=== PATIENT | female | born 1995 | race Caucasian/White ===

== ENCOUNTER 2018-06-14 16:20 | Emergency (ER) | payer OTHER ==
[2018-06-14 16:37] VITALS: BP 106/68; PULSE 72; RESP 16; O2SAT 98; BMI 23.0
[2018-06-14 16:41] VITALS: TEMP 99
--- NOTE | 2018-06-14 17:07 | C.PDOC ---
History Of Present Illness 22 year old female presents to ED with complaint of digitally and positionally reproducible pain to the left lower para-sternal border for 3 weeks. Patient states that she slipped and fell 3 weeks ago. She states that the pain is worse with deep breathes and shoulder rotation. Patient denies fever, chills, numbness, and weakness. Time Seen by Provider: 06/14/18 16:54 Chief Complaint (Nursing): Chest Pain History Per: Patient History/Exam Limitations: no limitations Onset/Duration Of Symptoms: Other (3 weeks) Current Symptoms Are (Timing): Still Present Quality: "Pain" Associated Symptoms: Dyspnea. denies: Diaphoresis Exacerbating Factors: Deep Breathing, Other (shoulder rotation) Alleviating Factors: None Past Medical History Reviewed: Historical Data, Nursing Documentation, Vital Signs Vital Signs: Last Vital Signs Temp 99 F 06/14/18 16:39 Pulse 72 06/14/18 16:39 Resp 16 06/14/18 16:39 BP 106/68 06/14/18 16:39 Pulse Ox 98 06/14/18 16:39 - Medical History PMH: No Chronic Diseases Surgical History: No Surg Hx Family History: States: Unknown Family Hx - Social History Hx Alcohol Use: No Hx Substance Use: No - Immunization History Hx Tetanus Toxoid Vaccination: No Hx Influenza Vaccination: No Hx Pneumococcal Vaccination: No Review Of Systems Constitutional: Negative for: Fever, Chills, Weakness Cardiovascular: Positive for: Other (pain to the left lower para-sternal border) Respiratory: Negative for: Cough, Shortness of Breath Neurological: Negative for: Weakness, Numbness, Dizziness Physical Exam - Physical Exam Appears: Well, Non-toxic, No Acute Distress Skin: Normal Color, Warm, Dry Head: Atraumatic, Normacephalic Neck: Normal ROM, Supple Chest: Tenderness (left lower parasternal border) Cardiovascular: Rhythm Regular, No Murmur Respiratory: No Accessory Muscle Use Neurological/Psych: Oriented x3, Normal Speech, Normal Cognition ED Course And Treatment ECG: Interpreted By Me ECG Rhythm: Sinus Rhythm ECG Interpretation: Normal Rate From EC O2 Sat by Pulse Oximetry: 98 (in RA) Pulse Ox Interpretation: Normal Progress Note: EKG ordered for patient. Re-evaluation. Patient feels better. Discussed results and plan with patient who expresses understanding. All questions answered and there is agreement with the plan to discharge home with instructions. Patient stable for discharge. Return if symptoms persist or worsen. Medical Decision Making Medical Decision Making: slip and fall 3 wks ago w positionally and digitally reproducable anterior chest wall discomfort @ L lower costo/sternal boarder c/w Costochondritis h/o normal card echo recently. normal exercise tolerance clear lungs declines NSAIDS/Ice therapy opt f/u [facility]. Disposition Doctor Will See Patient In The: Office Counseled Patient/Family Regarding: Studies Performed, Diagnosis - Disposition Referrals: [facility] [Outside] [facility] [Outside] [email or web address] Disposition: HOME/ ROUTINE Disposition Time: 17:07 Condition: GOOD Additional Instructions: ibuprofeno 400-600 mg cada 6 horas pedro necessario [place] 1/2 hora por hora, nada caliente no adalberto jesus caliente no levanta nada pesada por 1 semana. Sigue en [facility] pedro necessario. Instructions: Costochondritis Forms: [facility] (O[place]i) Print Language: CHADIAN - Clinical Impression Clinical Impression: Chest wall discomfort - Scribe Statement The provider has reviewed the documentation as recorded by the Scribe (Nena Russell) All medical record entries made by the Scribe were at my direction and personally dictated by me. I have reviewed the chart and agree that the record accurately reflects my personal performance of the history, physical exam, medical decision making, and the department course for this patient. I have also personally directed, reviewed, and agree with the discharge instructions and disposition.
--- NOTE | 2018-06-16 21:24 | CARD ---
APPROVED REPORT Date of service: 06/14/2018 EKG Measurement Heart [id number] <Conclusion> Sinus rhythm with marked sinus arrhythmia Otherwise normal ECG
== END 2018-06-14 17:36 | disposition home or self-care (01) ==
LOC: C.ER 16:20
DX: R07.89 Other chest pain (principal)